=== PATIENT | male | born 1960 | race Caucasian/White ===

== ENCOUNTER 2017-01-19 16:50 | Emergency (ER) | payer MEDICARE, OTHER ==
[~2017-01-19] VITALS: Ht 172.7 cm; Wt 76.0 kg
[2017-01-19 16:51] VITALS: BP 128/71; PULSE 94; RESP 16; TEMP 99; O2SAT 97
--- NOTE | 2017-01-19 17:01 | PD ---
Physical Exam Date Seen by Provider: Jan 19, 2017 Time Seen by Provider: 17:00 Narrative 56 yo male that presents to the ED for evaluation of left distal index finger puncture wound. Per patient this happened a few days ago. About 5 days ago. [place] like something pock him. Able to move it but is painful and feels like something is there. Numbness. No weakness. No prior injuries. Vitals sign stable. Patient awaiting bed placement. Data Data Last Documented VS Vital Signs Date Time Temp Pulse Resp B/P Pulse Ox O2 Delivery O2 Flow Rate FiO2 01/19/17 16:51 99.0 94 16 128/71 97 Room Air [facility] Medical Record Reviewed: Yes Supervised Visit with JOE: No Dustin Lopez Jan 19, 2017 17:01
[2017-01-19] MEDS ORDERED: TRAM50TA PO (17:20)
[2017-01-19] MEDS ORDERED: GLIP5TAB8 PO (17:20)
[2017-01-19] MEDS ORDERED: insulin (17:20)
[2017-01-19] MEDS ORDERED: cholesterol pill (17:20)
[2017-01-19] MEDS ORDERED: METF500T PO (17:20)
[2017-01-19] MEDS ORDERED: CEPH-460 PO (17:49)
--- NOTE | 2017-01-19 17:50 | PD ---
HPI Chief Complaint: Injury Time Seen by Provider: 17:48 Travel History International Travel<30 days: No Contact w/Intl Traveler<30days: No Traveled to known affect area: No History of Present Illness HPI 56-year-old male presents to emergency Department with complaint of pain to the tip of his left index finger 5 days. Denies injury. He states that there is a small area that is numb. He is diabetic and checks his sugars in his fingers. Says that the pain and the numbness is not normal for him. He denies fever, chills, nausea, vomiting. Denies loss of sensation, decreased range of motion, decreased strength to the affected extremity. Has no other medical complaints. No other modifying factors or associated signs and symptoms. PFSH Past Medical History High Cholesterol: Yes Diabetes: Yes Patient Takes Glucophage: Yes Musculoskeletal: Yes (hx of spine injury) Tetanus Vaccination: < 5 Years Past Surgical History Appendectomy: Yes Social History Alcohol Use: No Tobacco Use: Yes Substance Use: No Allergies-Medications (Allergen,Severity, Reaction): Coded Allergies: No Known Allergies (Unverified , 01/19/17) Reported Meds & Prescriptions Reported Meds & Active Scripts Active Keflex (Cephalexin) 500 Mg Cap 500 Mg PO Q8H 7 Days Reported Tramadol (Tramadol HCl) 50 Mg Tab 50 Mg PO HS PRN [cholesterol pill] HS [insulin] 20 DAILY Glipizide 5 Mg Tab Unknown Dose PO BIDAC Take 30 minutes before a meal Metformin (Metformin HCl) 500 Mg Tab Unknown Dose PO BIDPC With meals Review of Systems Except as stated in HPI: all other systems reviewed are Neg Physical Exam Narrative GENERAL: Well-nourished, well-developed male patient, in no acute distress SKIN: Warm and dry. Left index finger is without erythema, edema; with full range of motion and sensory intact; less than 3 second cap refill; there is an area to the lateral aspect of the finger that the patient says is numb, otherwise sensation is intact. There are no signs of infection to the finger. The patient is a diabetic and checks his blood sugars in his fingers. HEAD: Atraumatic. Normocephalic. EYES: Pupils equal and round. No scleral icterus. No injection or drainage. ENT: Mucosa pink and moist. Airway patent. NECK: Trachea midline. CARDIOVASCULAR: Regular rate. RESPIRATORY: No accessory muscle use. GASTROINTESTINAL: Flat. MUSCULOSKELETAL: No obvious deformities. No clubbing. No cyanosis. No edema. NEUROLOGICAL: Awake and alert. Oriented 3. No obvious cranial nerve deficits. Motor grossly within normal limits. Normal speech. PSYCHIATRIC: Appropriate mood and affect; insight and judgment normal. Data Data Last Documented VS Vital Signs Date Time Temp Pulse Resp B/P Pulse Ox O2 Delivery O2 Flow Rate FiO2 01/19/17 16:51 99.0 94 16 128/71 97 Room Air MDM Medical Decision Making Medical Screen Exam Complete: Yes Emergency Medical Condition: Yes Medical Record Reviewed: Yes Differential Diagnosis Medical clearance, finger pain, nerve damage Narrative Course 56-year-old male with left index finger pain and numbness to the distal lateral aspect. He is a diabetic and checks his blood sugars in his fingers. He says the numbness and pain is not normal. There are no signs of infection to the finger. The patient is requesting antibiotics. I discussed that there are no signs of infection and antibiotic therapy and the patient continues to request antibiotics. I will prescribe the patient antibiotics per request. Keflex prescribed for home. Patient verbalizes understanding and agreement with treatment plan. Patient is medically cleared and stable for discharge. Discussed reasons to return to the emergency department. Instructed patient to follow up with primary care provider. Patient agrees with treatment plan. The patients vital signs are stable and the patient is stable for outpatient follow- up and treatment. Patient discharged home, stable and in no acute distress. Diagnosis Primary Impression: Pain in finger of left hand Referrals: Primary Care Physician Additional Instructions: Ibuprofen or Tylenol as directed and as needed for pain Follow-up with primary care provider Med/Other Pt SpecificInfo: Prescription(s) given Scripts Cephalexin (Keflex)500 Mg [id number] Mg PO Q8H 7 Days Ref 0 Prov:Tesha Ya 01/19/17 Disposition: 01 DISCHARGE HOME Condition: Stable Tesha Ya Jan 19, 2017 17:50
== END 2017-01-19 18:46 | disposition home or self-care (01) ==
LOC: NEPK 16:50
DX: M79.645 Pain in left finger(s) (principal); R20.0 Anesthesia of skin; E11.9 Type 2 diabetes mellitus without complications; E78.00 Pure hypercholesterolemia, unspecified; Z72.0 Tobacco use; Z79.4 Long term (current) use of insulin; Z87.39 Personal history of other diseases of the musculoskeletal system and connective tissue
CPT/HCPCS: 99283